=== PATIENT | female | born 1950 | race African-American/Black ===

== ENCOUNTER 2019-04-23 09:08 | Emergency (ER) | payer MEDICARE ==
[2019-04-23 10:24] LABS: #Basophils 0.1 thou/uL (0.0-0.2); #Eosinphils 0.3 thou/uL (0.0-0.7); #Lymphocytes 3.4 thou/uL (1.20-3.40); #Monocytes 0.7 thou/uL (0.11-0.59); #Neutrophils 5.8 thou/uL (1.40-6.50); %Basophils 1.4 % (0.0-1.0); %Eosinophils 2.8 % (0.0-10.0); %Lymphocytes 32.9 % (21.0-51.0); %Monocytes 6.8 % (0.0-10.0); %Neutrophils 56.2 % (42.0-75.0); Hemoglobin 11.5 g/dL (12.0-16.0); Mean Corpuscular HGB CONC 32.3 g/dL (32.0-36.0); Mean Platelet Volume 6.9 fL (7.4-10.4); Platelet Count 260 thou/uL (130-400); RBC Distribution Width 12.5 % (11.5-14.5); White Blood Cell (WBC) Count 10.4 thou/uL (4.8-10.8)
[2019-04-23] MEDS ORDERED: traMADol HCl 50 MG TAB ONE (10:35)
[2019-04-23 10:38] LABS: ALT (SGPT) 12 U/L (8-55); AST (SGOT) 14 U/L (5-34); Albumin 4.1 g/dL (3.4-4.8); Alkaline Phosphatase 116 U/L (40-110); Anion Gap 14 mmol/L (10-20); BUN (Urea Nitrogen) 25 mg/dL (9.8-20.1); Bilirubin, Total 0.2 mg/dL (0.2-1.2); Calc. Creatinine Clearance 0 mL/min (70-130); Calcium 9.4 mg/dL (7.8-10.44); Carbon Dioxide 23 mmol/L (23-31); Chloride 105 mmol/L (98-107); Estimated GFR-MDRD 64; Globulin 3.1 g/dL (2.4-3.5); Glucose 103 mg/dL (80-115); Protein, Total 7.2 g/dL (6.0-8.3); Sodium 138 mmol/L (136-145)
[2019-04-23] MEDS ORDERED: Ketorolac Tromethamine 30 MG/ML VIAL ONE (10:48)
== END 2019-04-23 12:21 | disposition home or self-care (01) ==
LOC: NAV ERS 09:08
DX: M54.42 Lumbago with sciatica, left side (principal); M54.16 Radiculopathy, lumbar region; E11.9 Type 2 diabetes mellitus without complications; I10 Essential (primary) hypertension; F32.9 Major depressive disorder, single episode, unspecified; F41.9 Anxiety disorder, unspecified; F17.210 Nicotine dependence, cigarettes, uncomplicated; Z79.84 Long term (current) use of oral hypoglycemic drugs; Z79.899 Other long term (current) drug therapy
CPT/HCPCS: 80053; 85025; 85652; 86140; 96374; J1885